=== PATIENT | female | born 1990 | race Caucasian/White ===

== ENCOUNTER 2021-06-23 23:01 | Emergency (ER) | payer SELFPAY ==
[~2021-06-23] VITALS: Ht 162.6 cm; Wt 61.0 kg
[2021-06-24] MEDS ORDERED: IBUP-2029 MT (01:06)
[2021-06-24] MEDS ORDERED: IBUPROFEN 600MG TABLET PO ONE (01:15)
[2021-06-24 03:14] VITALS: BP 135/84
== END 2021-06-24 03:43 | disposition home or self-care (01) ==
LOC: ER 23:01
DX: M54.2 Cervicalgia (principal); M54.5 Low back pain; V49.49XA Driver injured in collision with other motor vehicles in traffic accident, initial encounter; Y93.89 Activity, other specified; Y92.89 Other specified places as the place of occurrence of the external cause; Y99.8 Other external cause status
CPT/HCPCS: 72040; 72100; 73130; 81025; 99284